=== PATIENT | female | born 1950 | race African-American/Black ===

== ENCOUNTER → 2017-06-05 | Outpatient (CLI) | payer OTHER ==
[~2017-06-05] MED LIST: ANTIVERT25 MG PO; ASPIR 8181 MG PO; COREG6.25 MG PO; COZAAR 50 MG TA50 M2 PO; LANTUS100 UNIT/M SUBQ; LASIX 40 MG TAB40 M2 PO; LEXAPRO20 MG PO; NEURONTIN 300300 M1 PO; OXTELLAR XR150 MG PO; PERCOCET PO; POTASSIUM20 PO; PRAVACHOL40 MG PO; PROTONIX40 M1 PO; REQUIP 0.25 M0.25 M1 PO; STOOL SOFTENER100 MG PO; TRAMADOL 50 MG50 MG PO; TRAZODONE HCL100 MG PO; WELLBUTRIN SR150 MG PO; XARELTO10 MG PO; ZANAFLEX4 MG PO
== END ==
LOC: M.MRI 13:30
DX: S83.242A Other tear of medial meniscus, current injury, left knee, initial encounter (principal); M17.12 Unilateral primary osteoarthritis, left knee; X58.XXXA Exposure to other specified factors, initial encounter; Y93.89 Activity, other specified; Y92.89 Other specified places as the place of occurrence of the external cause; Y99.8 Other external cause status

== ENCOUNTER 2017-08-08 06:44 | Inpatient (IN) | payer OTHER ==
[2017-07-27 08:57] LABS: HEMATOCRIT 35.5 % (37.0-47.0); HEMOGLOBIN 11.7 gm/dL (12.0-15.0); MCH 28.7 pg (26.0-34.0); MPV 7.8 fl. (7.2-11.1); RBC 4.08 mil/uL (4.20-5.00); RDW-CV 13.4 % (10.5-14.5); WBC 10.2 thou/uL (4.0-11.0)
[2017-07-27 09:04] LABS: INR 1.1; PROTIME 10.6 Seconds (9.20-11.50)
[2017-07-27 09:08] LABS: ALBUMIN 3.5 g/dL (3.4-5.0); CALCIUM 8.7 mg/dL (8.5-10.1); CREATININE 1.7 mg/dL (0.6-1.3); POTASSIUM 4.2 mmol/L (3.5-5.1); TOTAL BILIRUBIN 0.4 mg/dL (<0.1-1.0); TOTAL PROTEIN 7.9 g/dL (6.4-8.2)
[2017-07-27 10:00] LABS: URINE BILIRUBIN NEGATIVE (Negative); URINE BLOOD NEGATIVE (Negative); URINE CLARITY SL CLOUDY; URINE COLOR YELLOW; URINE GLUCOSE-RANDOM NEGATIVE (Negative); URINE KETONES NEGATIVE (Negative); URINE LEUKOCYTES-REFLEX 1+ (Negative); URINE NITRITE-REFLEX NEGATIVE (Negative); URINE PROTEIN NEGATIVE (Negative); URINE UROBILINOGEN 0.2 E.U./dl (0.2-1.0)
[2017-07-27 10:09] LABS: BACTERIA-REFLEX >30 Many /HPF (None Seen); CASTS None Seen /LPF (None Seen); CRYSTALS None Seen /LPF (None Seen); MUCUS 0-3 Light strn/LPF (None Seen); SQUAMOUS 4-10 Moderate /LPF (0-3); URINE RBC 0-2 Rare /HPF (0-2); URINE WBC-REFLEX 6-15 Few /HPF (0-5)
--- NOTE | 2017-07-27 16:39 | EKG ---
[place] [address] ELECTROCARDIOGRAM REPORT Name: MONIE MAYBERRY Room: PRE IN [facility].#: [id number] Admission: Attend Phys: Gt Ram Discharge: Date of : 48 Report #: [id number] THIS REPORT FOR: //name// [facility] Test Date: 2017-07-27 Test Time: 09:28:34 Pat Name: MONIE THOMAS BRADY Department: Room: Gender: F Ehr Trainer: : 1950 Requested By: Tyler Taylor Order Number: [id number] Reading MD: Roni Delarosa Measurements Intervals [place] Rate: 96 P: 59 WV: 163 QRS: -5 QRSD: 103 T: 51 QT: 391 QTc: 495 Interpretive Statements Sinus rhythm Borderline prolonged QT interval No previous ECG available for comparison Electronically Signed On 07-27-2017 16:39:14 CDT by Roni Delarosa [email or web address] <ELECTRONICALLY SIGNED> By: Roni Delarosa MD, [facility] 07/27/17 1639 0928 0928 Roni Delarosa MD, FACC /EPI
[~2017-08-08] VITALS: Ht 182.9 cm; Wt 118.8 kg
[~2017-08-08 06:44] MED LIST changes: -LASIX 40 MG TAB40 M2 PO; -PERCOCET PO; -XARELTO10 MG PO
[2017-08-08 09:25] VITALS: BP 126/73
[2017-08-08 13:59] VITALS: BP 150/83
[2017-08-08 21:00] VITALS: BP 110/67
[2017-08-09 01:21] VITALS: BP 85/55
[2017-08-09 04:11] VITALS: BP 92/58
[2017-08-09 05:20] LABS: HEMATOCRIT 30.4 % (37.0-47.0); HEMOGLOBIN 10.1 gm/dL (12.0-15.0); MCH 29.4 pg (26.0-34.0); MCHC 33.2 g/dL (28.0-37.0); MCV 88.5 fL (80.0-100.0); MPV 7.7 fl. (7.2-11.1); RBC 3.43 mil/uL (4.20-5.00); RDW-CV 13.7 % (10.5-14.5); WBC 11.5 thou/uL (4.0-11.0)
[2017-08-09 05:45] LABS: ALBUMIN 3.2 g/dL (3.4-5.0); CALCIUM 8.2 mg/dL (8.5-10.1); CREATININE 2.4 mg/dL (0.6-1.3); MAGNESIUM 2.1 mg/dL (1.8-2.4); POTASSIUM 4.8 mmol/L (3.5-5.1); TOTAL BILIRUBIN 0.4 mg/dL (<0.1-1.0); TOTAL PROTEIN 6.6 g/dL (6.4-8.2)
[2017-08-09 07:30] VITALS: BP 108/64
[2017-08-09 10:43] VITALS: BP 108/64
[2017-08-09 20:00] VITALS: BP 99/54
[2017-08-09 21:53] LABS: CALCIUM 8.1 mg/dL (8.5-10.1); POTASSIUM 4.5 mmol/L (3.5-5.1)
[2017-08-09 22:14] LABS: URINE BILIRUBIN NEGATIVE (Negative); URINE BLOOD NEGATIVE (Negative); URINE CLARITY CLEAR; URINE COLOR YELLOW; URINE GLUCOSE-RANDOM NEGATIVE (Negative); URINE KETONES NEGATIVE (Negative); URINE LEUKOCYTES-REFLEX TRACE (Negative); URINE NITRITE-REFLEX POSITIVE (Negative); URINE PROTEIN NEGATIVE (Negative); URINE SPECIFIC GRAVITY >= 1.030 (1.005-1.030); URINE UROBILINOGEN 0.2 E.U./dl (0.2-1.0)
[2017-08-09 22:27] LABS: BACTERIA-REFLEX >30 Many /HPF (None Seen); SQUAMOUS 0-3 Few /LPF (0-3); TRANSITIONAL EPITHEL CELL 0-3 Few /LPF (None Seen); URINE RBC 3-10 Few /HPF (0-2); WBC CLUMPS Few (None Seen)
[2017-08-09 22:28] LABS: CELLULAR CASTS 0-3 Few /LPF (None Seen); COARSE GRANULAR CASTS 0-3 Few /LPF (None Seen); CRYSTALS None Seen /LPF (None Seen); FINE GRANULAR CASTS 0-3 Few /LPF (None Seen); HYALINE CASTS 4-10 Moderate /LPF (None Seen); MUCUS >6 Heavy strn/LPF (None Seen)
[2017-08-09 23:15] VITALS: BP 80/42
[2017-08-10] VITALS: BP 88/48
[2017-08-10 04:11] VITALS: BP 102/61
[2017-08-10 04:19] LABS: HEMATOCRIT 31.8 % (37.0-47.0); HEMOGLOBIN 10.4 gm/dL (12.0-15.0); MCH 29.1 pg (26.0-34.0); MCHC 32.6 g/dL (28.0-37.0); MCV 89.5 fL (80.0-100.0); MPV 7.8 fl. (7.2-11.1); RBC 3.56 mil/uL (4.20-5.00); RDW-CV 13.9 % (10.5-14.5); WBC 10.9 thou/uL (4.0-11.0)
[2017-08-10 04:58] LABS: ALBUMIN 3.2 g/dL (3.4-5.0); CALCIUM 8.2 mg/dL (8.5-10.1); POTASSIUM 4.3 mmol/L (3.5-5.1); TOTAL BILIRUBIN 0.3 mg/dL (<0.1-1.0); TOTAL PROTEIN 6.7 g/dL (6.4-8.2)
[2017-08-10 07:25] VITALS: BP 94/43
[2017-08-10 11:37] VITALS: BP 115/59
[2017-08-10 16:00] VITALS: BP 137/62
[2017-08-10 19:45] VITALS: BP 141/69
[2017-08-11] VITALS: BP 107/60
[2017-08-11 04:01] VITALS: BP 121/68
[2017-08-11 08:00] VITALS: BP 117/55
[2017-08-11 08:35] LABS: HEMOGLOBIN 9.4 gm/dL (12.0-15.0); MCH 29.6 pg (26.0-34.0); MCHC 33.7 g/dL (28.0-37.0); RBC 3.18 mil/uL (4.20-5.00); RDW-CV 13.5 % (10.5-14.5); WBC 11.5 thou/uL (4.0-11.0)
[2017-08-11 08:54] LABS: ALBUMIN 2.9 g/dL (3.4-5.0); CALCIUM 8.1 mg/dL (8.5-10.1); CREATININE 2.2 mg/dL (0.6-1.3); PHOSPHORUS* 3.6 mg/dL (2.5-4.9); POTASSIUM 4.5 mmol/L (3.5-5.1); TOTAL BILIRUBIN 0.6 mg/dL (<0.1-1.0)
--- NOTE | 2017-08-11 10:12 | S ---
[address] [address] SURGICAL PATH RPT PROCEDURE Name: SHEA MAYBERRY Room: [address] IN M.R.#: [id number] Admission: 08/08/17 Date of : 48 Discharge: Report #: [id number] Path Case #: [id number] PATHOLOGY REPORT COLLECTION DATE: 08/08/2017 RECEIVED DATE: 08/08/2017 SUBMITTING PHYS: Dr. Tyler Taylor II OTHER PHYS: Dr. Tolu Valdez DO SPECIMEN(S) RECEIVED: A.Bone left knee * * * * * * * * * * * * FINAL DIAGNOSIS: Bone left knee, total knee replacement: - Benign meniscus and synovium and benign bone and cartilage with severe microcystic degenerative changes. (MEGHAN:daysi; 08/10/2017) PATHOLOGIST: Chaon Scales M.D. REPORT ELECTRONICALLY SIGNED BY: Chano Scales M.D. DATE/TIME: 08/11/2017 10:12 * * * * * * * * * * * * GROSS PATHOLOGY: Received in formalin labeled "Shea Edge, bone left knee," are multiple segments of bone, including tibial plateau, measuring 13.3 x 11.2 x 2.6 cm in aggregate dimensions admixed with soft tissue; meniscus is present. The specimen shows focal eburnation of the articular surfaces. Refrigeration Plant Operator sections of bone and soft tissue are submitted in cassette A1, following decalcification. (DAC; 08/09/2017) CLINICAL HISTORY: Left knee degenerative joint disease INITIAL CPT CODE(S): A; 26986, 04683 Professional services performed by [facility] at [facility], [address] [place] [address] , [place] [address]. Technical services performed by [facility] at [address] [place] [address], [facility] [address] [address]. [place] [id number] SURGICAL PATH RPT PROCEDURE Name: SHEA MAYBERRY Room: [address] [facility].#: [id number] Admission: 08/08/17 Date of : 48 Discharge: Report #: [id number] Path Case #: [id number] [facility] [address] [address] PHONE: [phone] DIRECTOR: Chalo Oshea M.D. * * * END OF REPORT * * *
[2017-08-11 15:12] VITALS: BP 117/55
[2017-08-11] MEDS ORDERED: PERCOCET PO (15:30)
[2017-08-11] MEDS ORDERED: XARELTO10 MG PO (15:31)
[2017-08-11] MEDS ORDERED: LASIX 40 MG TAB40 M2 PO (15:32)
[2017-08-11 15:33] VITALS: BP 117/55
[2017-08-11 16:24] VITALS: BP 117/55
--- NOTE | 2017-08-14 09:45 | CON ---
[address] [address] CONSULTATION Name: THOMAS MOINE BRADY Room: [address] IN .R.#: [id number] Admission: 08/08/17 Attend Phys: Gt Ram Discharge: 08/11/17 Date of : 48 Report #: [id number] THIS REPORT FOR: //name// CC: Tyler Noble NEPHROLOGY CONSULTATION CONSULTING PHYSICIAN: Tolu Noble DO. REASON FOR CONSULTATION: Acute kidney injury. HISTORY OF PRESENT ILLNESS: A 66-year-old female with degenerative joint disease, who underwent a left total knee replacement on 08/08/2017. I am asked to see her because of a rise in her creatinine. On 07/27/2017, it was 1.7; on 08/09/2017, it was 2.4 and 3 and it is again 3 today. She denies any history of underlying chronic kidney disease. She does not take any NSAIDs. Denies any nausea, vomiting or diarrhea. She did have some urinary retention and has had some low blood pressures. She otherwise feels fine now, has no complaints. REVIEW OF SYSTEMS: Constitutional, psych, heme, eyes, ENT, respiratory, cardiac, GI, , endocrine, all negative, except as documented above. PAST MEDICAL HISTORY: Hypertension, dyslipidemia, trigeminal neuralgia, insulin-dependent diabetes, history of retinal detachment, history of CHF, cholecystectomy and hysterectomy. FAMILY HISTORY: Son had ESRD and is , I believe, secondary to diabetes. SOCIAL HISTORY: No tobacco. CURRENT MEDICATIONS: Reviewed. PHYSICAL EXAMINATION: VITAL SIGNS: Blood pressure 94/43, pulse 89 and temperature 36.6. GENERAL EXAMINATION: No acute distress. EYES: Right eye open. Left eye, she had an enucleation. ABDOMEN: Soft. MUSCULOSKELETAL: Nontender. PSYCHIATRIC: Awake, alert. LABORATORY DATA: White blood cell count 10.9, hemoglobin 10.4 and platelets 201,000. Sodium 136, potassium 4.3, chloride 103, bicarbonate 24, BUN 33, creatinine 3, glucose 99 and calcium 8.2. Liver functions okay. Albumin 3.2. U/[place] [address] CONSULTATION Name: MONIE MAYBERRY Room: [address]#: [id number] Admission: 08/08/17 Attend Phys: Gt Ram Discharge: 08/11/17 Date of : 48 Report #: [id number] ASSESSMENT: 1. Acute kidney injury. On 07/27/2017, creatinine 1.7. Prior creatinine values not available. Creatinine up to 3 on 08/10/2017, in the setting of systolic blood pressures as low as 80s. Some degree of urinary retention and ARB use. 2. Anemia. 3. Urinary tract infection. 4. Status post left total knee arthroplasty, 08/08/2017, secondary to degenerative joint disease. 5. Insulin-dependent diabetes with no known history of retinopathy. 6. History of left retinal detachment. 7. Hypertension. 8. History of congestive heart failure. PLAN: 1. Discontinue losartan and Lasix. 2. Hydrate. 3. We will ask pharmacy to renally dose tramadol and gabapentin. 4. Urine culture has been sent. We will defer antibiotics to Internal Medicine. 5. Check renal ultrasound. 6. Check labs again in the a.m. Thank you for requesting my opinion in the care and management of this patient. <ELECTRONICALLY SIGNED> By: Rocio Cardenas MD 08/14/17 0945 1048 [id number] Cardenas MD /nt
--- NOTE | 2017-08-23 10:50 | OP ---
[facility] [address] [place] [address] OPERATIVE REPORT Name: MONIE MAYBERRY Room: [address] IN .R.#: [id number] Admission: 08/08/17 Attend Phys: Gt Ram Discharge: 08/11/17 Date of : 48 Report #: [id number] THIS REPORT FOR: //name// CC: Tyler Noble DATE OF SERVICE: 08/08/2017 PREOPERATIVE DIAGNOSIS: Left knee osteoarthritis. POSTOPERATIVE DIAGNOSIS: Left knee osteoarthritis. PROCEDURE: Left total knee arthroplasty. SURGEON: Tyler Taylor II, DO STRAND FORMING MACHINE OPERATOR: DOREEN Jansen ANESTHESIA: General endotracheal. ESTIMATED BLOOD LOSS: 50 mL ANTIBIOTICS: Vancomycin preoperatively. DRAINS: Medium Hemovac. COMPLICATIONS: None. DISPOSITION: Stable to recovery room. IMPLANTS: Listed in the operative record and progress note. BRIEF HISTORY: The patient was seen in the preoperative area. Preoperative H and P was performed. The patient's site was marked. Questions were answered. Risks discussed with the patient in detail about surgery. The patient wished to proceed and assumed all risks. DESCRIPTION OF PROCEDURE: The patient was taken to the operative suite and placed supine on the operating table and given appropriate anesthesia. A well-padded tourniquet was then applied to the upper thigh, which was inflated to 300 mmHg after gravity exsanguination. The operative site was prepped and draped. Surgery began by midline incision and was carried down to subcutaneous tissues. A medial parapatellar arthrotomy was then performed and carried down to bone. Patella was then everted and excess soft tissue removed from the femur. The femoral cutting block was then applied, checked with a drop jenniffer for [facility] [address] [place] [address] OPERATIVE REPORT Name: MONIE MAYBERRY Room: [address] IN [facility].#: [id number] Admission: 08/08/17 Attend Phys: Gt Ram Discharge: 08/11/17 Date of : 48 Report #: [id number] rotational alignment in appropriate position and proper cuts were made. A 4-in-1 cutting block was then applied, checked for rotational alignment, pinned into appropriate position and appropriate cuts were made. The tibia was then exposed. The excess meniscus was removed. Retractor was then placed along the collateral ligaments. The tibial cutting block was applied, pinned in appropriate position and checked with a drop jenniffer for rotational alignment and slope and appropriate cut was made. The tibial bone was removed. The tibial baseplate was then applied, checked for rotation alignment with the drop jenniffer and pinned in appropriate position. The femur was then applied and box cut was reamed. This was then trialed with the appropriate spacer, which showed excellent fit and fill and excellent stability of the knee through all range of motion. The patella was then reamed in appropriate fashion and sized for a size, 3 peg holes were drilled. It was then trialed. There was excellent flexion, extension and excellent tracking of the patella in the groove. These trials were removed. The tibia was punched in appropriate fashion. Bony ends were cleansed with Pulsavac irrigation and cement was mixed and applied in the final implant. These were malleted in position, held the knee in extension and compressed to allow the cement to cure. After it cured, excess was removed using [place] and osteotome. The wound was then copiously irrigated and the final spacer was then malleted into position. Tourniquet was deflated. Hemostasis was maintained with electrocautery. Pain cocktail was injected. PRP gel was sprayed throughout the internal aspects of the knee. Medium Hemovac drain was applied. The capsule was closed with #2 FiberWire and #1 Vicryl in [id number] fashion. Skin was closed with 2-0 Vicryl and running 3-0 Monocryl. Dermabond dressing was then applied. Jeff wrap and PolarCare was applied. The patient was transported to recovery room in stable condition. Counts were correct throughout the procedure. <ELECTRONICALLY SIGNED> By: Tyler Taylor II, DO 08/23/17 1050 1720 [id number] Taylor II, DO /nt
== END 2017-08-11 16:15 | DRG 469 ==
LOC: M.PRE 06:44 → M.TBA 08:30 → M.ORTHSURG 08:30 → M.PRE 09:51 → M.ORTHSURG 13:27
PROVIDERS: Internal Medicine; Orthopaedic Surgery; ADMIT Internal Medicine
PROC: 0SRD0J9 Replacement of Left Knee Joint with Synthetic Substitute, Cemented, Open Approach (ICD-10-PCS; principal; 2017-08-08)
DX: M17.12 Unilateral primary osteoarthritis, left knee (principal); N17.0 Acute kidney failure with tubular necrosis; N39.0 Urinary tract infection, site not specified; H33.22 Serous retinal detachment, left eye; N18.4 Chronic kidney disease, stage 4 (severe); I13.0 Hypertensive heart and chronic kidney disease with heart failure and stage 1 through stage 4 chronic kidney disease, or unspecified chronic kidney disease; E44.0 Moderate protein-calorie malnutrition; I50.9 Heart failure, unspecified; E78.5 Hyperlipidemia, unspecified; D64.9 Anemia, unspecified; R33.9 Retention of urine, unspecified; E86.0 Dehydration; K21.9 Gastro-esophageal reflux disease without esophagitis; E11.9 Type 2 diabetes mellitus without complications; F32.9 Major depressive disorder, single episode, unspecified; F41.9 Anxiety disorder, unspecified; G25.81 Restless legs syndrome; Z90.49 Acquired absence of other specified parts of digestive tract; Z68.35 Body mass index [BMI] 35.0-35.9, adult; Z90.710 Acquired absence of both cervix and uterus; Z79.4 Long term (current) use of insulin; Z79.82 Long term (current) use of aspirin; Z79.899 Other long term (current) drug therapy; Z88.0 Allergy status to penicillin; Z88.2 Allergy status to sulfonamides; Z88.8 Allergy status to other drugs, medicaments and biological substances; Z91.041 Radiographic dye allergy status; Z84.1 Family history of disorders of kidney and ureter; Z83.3 Family history of diabetes mellitus